=== PATIENT | male | born 1985 | race Caucasian/White ===

== ENCOUNTER → 2017-06-05 | Outpatient (REF) | payer BC | LOC: M LAB REF 16:46 | PROVIDERS: ATTEND Physician Assistant | DX: J03.90 Acute tonsillitis, unspecified (principal) ==

== ENCOUNTER → 2018-12-24 | Outpatient (CLI) | payer BC ==
--- NOTE | 2018-12-24 14:48 | REP ---
Clinical: Trauma/injury. Technique: AP, lateral, bilateral oblique views of the right ankle. Comparison: None. Findings: Lateral soft tissue swelling consist with inversion injury. Small corticated density inferior to the fibular head may represent old avulsion fracture and much less likely acute injury. Ankle mortise appears intact. No other fracture or dislocation is identified or suggested. Impression: Lateral swelling suggests inversion injury. As above. Electronically Signed by Michele Gallegos MD 12/24/2018 02:39 P
== END ==
LOC: M LRY 14:24
PROVIDERS: ATTEND Physician Assistant
DX: S99.911A Unspecified injury of right ankle, initial encounter (principal); X58.XXXA Exposure to other specified factors, initial encounter; Y92.89 Other specified places as the place of occurrence of the external cause; Y99.9 Unspecified external cause status; Y93.9 Activity, unspecified